=== PATIENT | male | born 1995 | race Caucasian/White ===

== ENCOUNTER 2017-03-05 05:55 | Day surgery (SDC) | payer OTHER ==
[2017-03-05] MEDS ORDERED: ACETAMINOPHEN 1,000 MG/100 ML 100 ML IV ONE (06:28)
[2017-03-05] MEDS ORDERED: ceFAZolin 2 GM/50 ML 50 ML IV ONE (06:28)
[2017-03-05] MEDS ORDERED: CELECOXIB 100 MG CAPSULE PO ONE (06:28)
[2017-03-05] MEDS ORDERED: LACTATED RINGERS 1,000 ML IV ONE ×2 (06:55→09:34)
[2017-03-05] MEDS ORDERED: MIDAZOLAM 2 MG/2 ML VIAL IVP ONE (07:10)
[2017-03-05] MEDS ORDERED: fentaNYL 100 MCG/2 ML VIAL IVP ONE (07:10)
[2017-03-05] MEDS ORDERED: KETOROLAC 30 MG/ML VIAL IVP ONE (07:10)
[2017-03-05] MEDS ORDERED: LIDOCAINE-MPF 2% 5 ML VIAL IM ONE (07:10)
[2017-03-05] MEDS ORDERED: GLYCOPYRROLATE 1 MG/5 ML VIAL IVP ONE (07:10)
[2017-03-05] MEDS ORDERED: PROPOFOL 200 MG/20 ML VIAL IVP ONE (07:10)
[2017-03-05] MEDS ORDERED: ONDANSETRON 4 MG/2 ML VIAL IVP ONE (07:10)
[2017-03-05] MEDS ORDERED: MORPHINE PF 5 MG/10 ML AMP EP ONE (07:10)
[2017-03-05] MEDS ORDERED: DEXAMETHASONE 4 MG/ML VIAL IVP ONE (07:10)
[2017-03-05] MEDS ORDERED: BUPIVACAINE 0.5% PF 30 ML VIAL SUBQ ONE ×2 (08:05)
[2017-03-05] MEDS ORDERED: EPINEPHrine 1 MG/ML AMP IVP ONE (08:10)
[2017-03-05] MEDS ORDERED: ROPIVACAINE 0.2% PF 20 ML AMPULE SUBQ ONE (08:16)
[2017-03-05] MEDS ORDERED: MORPHINE PF 5 MG/10 ML AMP SUBQ ONE (08:17)
[2017-03-05] MEDS ORDERED: HYDROcod/ACETAM 5/325 MG TABLET ONE (10:26)
== END 2017-03-05 05:56 | disposition home or self-care (01) ==
PROC: 0SBC4ZZ Excision of Right Knee Joint, Percutaneous Endoscopic Approach (ICD-10-PCS; principal; 2017-03-05 07:30)
DX: M23.321 Other meniscus derangements, posterior horn of medial meniscus, right knee (principal); M71.21 Synovial cyst of popliteal space [Baker], right knee; M25.861 Other specified joint disorders, right knee; Z87.891 Personal history of nicotine dependence
CPT/HCPCS: 29881; A9270; J0131; J0690; J7120

== ENCOUNTER 2018-02-14 11:30 | Emergency (ER) | payer OTHER ==
[2018-02-14] MEDS ORDERED: SODIUM CHLORIDE 0.9% 1,000 ML IV ONE (11:49)
[2018-02-14] MEDS ORDERED: ONDANSETRON 4 MG/2 ML VIAL IVP STA (11:49)
[2018-02-14] MEDS ORDERED: FAMOTIDINE 20 MG/50 ML 50 ML IV ONE (11:50)
[2018-02-14 11:58] LABS: BASOPHILS % (AUTO) 0.5 %; EOSINOPHILS % (AUTO) 0.9 %; HGB - HEMOGLOBIN 16.5 g/dL (14.0-18.0); LYMPHOCYTES # (AUTO) 1.7 10^3/uL (1.5-3.5); LYMPHOCYTES % (AUTO) 44.6 %; MEAN CORPUSCULAR HEMOGLOBIN 31.5 pg (27.0-31.0); MEAN CORPUSCULAR VOLUME 87.5 fL (80.0-94.0); MONOCYTES # (AUTO) 0.3 10^3/uL (0.0-1.0); MONOCYTES % (AUTO) 7.4 %; NEUTROPHILS # (AUTO) 1.8 10^3/uL (1.5-6.6); NEUTROPHILS % (AUTO) 46.6 %; PLT - PLATELET COUNT 180 10^3/uL (130-450); RED BLOOD COUNT 5.23 10^6/uL (4.70-6.10); RED CELL DISTRIBUTION WIDTH 13.1 % (12.0-15.0); WHITE BLOOD COUNT 3.8 x10^3/uL (4.8-10.8)
[2018-02-14 12:09] LABS: ALBUMIN 4.9 g/dL (3.2-5.5); ALBUMIN/GLOBULIN RATIO 1.6 (1.0-2.2); BILIRUBIN,TOTAL 1.5 mg/dL (0.2-1.0); CALCIUM 9.2 mg/dL (8.5-10.3); CREATININE 1.1 mg/dL (0.6-1.2)
--- NOTE | 2018-02-14 12:33 | ED Physician Documentation ---
History of Present Illness - Stated complaint Stated Complaint: VOMITING - Chief complaint Chief Complaint: General - Additonal information Additional information: hx from pt healthy 22 y/o male ate sushi and drank EtOH last night this AM intracatable vomiting no diarrha no blood in vomit but some black liquid abd sore from vomiting Review of Systems Constitutional: denies: Fever, Chills GI: reports: Abdominal Pain, Vomiting. denies: Diarrhea Immunocompromised: denies: Immunocompromised PD PAST MEDICAL HISTORY - Past Medical History Past Medical History: Yes Cardiovascular: None Respiratory: None Neuro: None Endocrine/Autoimmune: None GI: None : None HEENT: None Psych: None Musculoskeletal: Other Derm: None - Past Surgical History Past Surgical History: Yes Ortho: ACL reconstruction - Present Medications Home Medications: Ambulatory Orders Medication Instructions Recorded Confirmed Ondansetron Odt [Zofran] 4 mg TL Q6H PRN #10 tablet 02/14/18 raNITIdine [Zantac] 150 mg PO BID #60 tablet 02/14/18 - Allergies Allergies/Adverse Reactions: Allergies Allergy/AdvReac Type Severity Reaction Status Date / Time No Known Drug Allergies Allergy Verified 02/14/18 11:35 - Social History Does the pt smoke?: Yes Smoking Status: Current every day smoker Does the pt drink ETOH?: Yes Does the pt have substance abuse?: No - Immunizations Immunizations are current?: Yes - POLST Patient has POLST: No PD ED PE NORMAL - Vitals Vital signs reviewed: Yes - Cardiac Cardiac: RRR - Respiratory Respiratory: No respiratory distress - Abdomen Abdomen: Soft, Other (mild diffuse TTP without rebound or guarding) - Derm Derm: Normal color - Neuro Neuro: Alert and oriented X 3 Results - Vitals Vitals: Vital Signs - 24 hr 02/14/18 02/14/18 11:32 13:37 Temperature 36.5 C 36.4 C L Heart Rate 89 61 Respiratory 16 16 Rate Blood Pressure 127/76 125/84 H O2 Saturation 100 98 Oxygen O2 Source Room air - Labs Labs: Laboratory Tests 02/14/18 02/14/18 11:38 11:38 WBC 3.8 L RBC 5.23 Hgb 16.5 Hct 45.8 MCV 87.5 MCH 31.5 H MCHC 36.0 RDW 13.1 Plt Count 180 MPV 7.0 L Neut # 1.8 Lymph # 1.7 Marion # 0.3 Eos # 0.0 Baso # 0.0 Absolute Nucleated RBC 0.00 Nucleated RBC % 0.0 Sodium 139 Potassium 3.8 Chloride 104 Carbon Dioxide 25 Anion Gap 10.0 BUN 15 Creatinine 1.1 Estimated GFR (MDRD) 83 L Glucose 118 H Calcium 9.2 Total Bilirubin 1.5 H AST 27 ALT 20 Alkaline Phosphatase 55 Total Protein 8.0 Albumin 4.9 Globulin 3.1 Albumin/Globulin Ratio 1.6 Lipase 15 L - Rads (name of study) abd sono Radiology: See rad report (ruq sono normal GB) PD MEDICAL DECISION MAKING - ED course ED course: better with zofran and IVF bili noted so got sono which was neg Departure - Departure Disposition: Home, Self Care Clinical Impression: Food poisoning Qualifiers: Encounter type: initial encounter Injury intent: accidental or unintentional Qualified Code(s): T62.91XA - Toxic effect of unspecified noxious substance eaten as food, accidental (unintentional), initial encounter Gastritis Qualifiers: Gastritis type: unspecified gastritis Chronicity: acute Gastritis bleeding: presence of bleeding unspecified Qualified Code(s): K29.00 - Acute gastritis without bleeding Condition: Good Instructions: ED Gastritis, ED Food Poison Or Gastroenteritis Follow-Up: [facility] [Provider Group] Prescriptions: Ondansetron Odt [Zofran] 4 mg TL Q6H PRN #10 tablet PRN Reason: Nausea / Vomiting raNITIdine [Zantac] 150 mg PO BID #60 tablet Comments: Rest and drink plenty of fluids Follow up at [facility] tomorrow if not better Return to the ER if worse Forms: Activity restrictions
--- NOTE | 2018-02-14 13:29 | Ultrasound Report ---
EXAM: ABDOMEN ULTRASOUND LIMITED, RUQ EXAM DATE: 02/14/2018 01:20 PM. CLINICAL HISTORY: Abdominal pain, nausea and vomiting. Elevated bilirubin. COMPARISON: None. TECHNIQUE: Real-time scanning was performed with static images obtained. FINDINGS: Liver: Normal in size and echotexture. 15.5 cm. Main portal vein flow: Hepatopetal. Gallbladder: Normal. No stones, wall thickening, or sonographic Rosa's sign. Biliary System: CBD measures 5 mm. No intrahepatic or extrahepatic ductal dilatation. Other: Right kidney measures 11.3 cm without hydronephrosis. IMPRESSION: Normal. No cholelithiasis or cholecystitis. [facility] Referring Provider Line: [phone] SITE ID: [id number]
--- NOTE | 2018-02-14 13:29 | Ultrasound Preliminary Report ---
Exam: US ABDOMEN LIMITED IMPRESSION: Normal. No cholelithiasis or cholecystitis. [facility] SITE ID: [id number]
[2018-02-14 13:38] VITALS: BP 125/84
== END 2018-02-14 14:56 | disposition home or self-care (01) ==
LOC: ED 11:30
DX: T62.8X1A Toxic effect of other specified noxious substances eaten as food, accidental (unintentional), initial encounter (principal); K29.00 Acute gastritis without bleeding
CPT/HCPCS: 36415; 76705; 80053; 83690; 85025; 96365; 96366; 96375; 99283; 99284